=== PATIENT | female | born 2000 | race Caucasian/White ===

== ENCOUNTER 2021-09-11 09:36 | Emergency (ER) | payer OTHER, SELFPAY ==
[2021-09-11 09:39] VITALS: BP 121/81; PULSE 106; RESP 16; TEMP 36.3; O2SAT 98; BMI 23.8
--- NOTE | 2021-09-11 10:25 | EX.ED.DYSGE1 ---
HPI History of Present Illness Chief Complaint: Rash Informant: patient Onset/Context/Timing Onset: Days (4-5) Context: Gradual Onset Timing: Continuous Quality: Red and itchy although not itchy now Location: all over mostly on extremities Current Severity: Moderate Maximum Severity: Moderate Worsened by: Nothing in particular Relieved by: Was helped by Benadryl and Zyrtec but not now Associated Symptoms Associated Symptoms: None except a little shaky in her hands Narrative Narrative: Patient has had hives for no apparent reason. She takes Prozac but no other medications and has had no other prescriptions or [id number] medications before this rash started. No exposures that she can think of except for some old close from the attic of her grandfathers that she had tried on, but she is not continuing to wear those. She is not . She saw urgent care, they put her on prednisone and she has had it for 2 or 3 days now and has noticed a minor difference but for the most part the rash is still there. It is not as itchy as it was, and now Benadryl is not helping at all with regards to the rash. [facility] Medical History (Updated 09/11/21 @ 10:[address] Michael Zelaya MD) Depression Medical History no medical history Allergy/AdvReac Type Severity Reaction Status Date / Time No Known Allergies Allergy Verified 09/11/21 09:38 Surgical History no surgical history no surgical history Social History Smoking Status: Unknown if ever smoked [facility] ED Constitutional Constitutional ED: Denies chills or fever(s) Eyes Eyes: Denies change in vision or diplopia ENT ENT ED: Denies rhinorrhea or sore throat Cardiovascular Cardiovascular: Denies chest pain or palpitations Respiratory/Chest Respiratory/Chest: Denies cough or dyspnea Gastrointestinal Gastrointestinal: Denies abdominal pain, diarrhea, nausea or vomiting Genitourinary Genitourinary ED: Denies dysuria or hematuria Musculoskeletal Musculoskeletal: Denies back pain or neck pain Integumentary Reports as per HPI and rash; Denies abscess Neurologic Neurologic: Denies headache(s), paresthesias or weakness Psychiatric Psychiatric: Denies anxiety or suicidal thoughts EXAM Physical Exam Const Vital Signs: 09/11/21 09:39 Temperature 97.4 F L Temperature Source Oral Pulse Rate 106 H Respiratory Rate 16 Blood Pressure 121/81 H Blood Pressure Mean 94 Pulse Ox 98 Oxygen Delivery Method Room Air Positive well nourished and well developed General Appearance ED: well developed and NAD HEENT Reports moist mucous membranes normocephalic and atraumatic Eyes PERRL and EOMs intact bilaterally Neck full ROM and supple Resp normal respiratory effort and clear to auscultation bilaterally Cardio regular rate, regular rhythm and no murmurs GI non-tender and non-distended Auscultation: normoactive bowel sounds Palpation: soft Back/Spine no CVA tenderness General Back: other FROM Extremity normal to inspection General Extremety ED: Negative for edema, pulses abnormal or tenderness General Extremity: Negative for edema or pulses abnormal Neuro oriented x3, CN's II-XII intact bilaterally and no sensory deficits noted Sensorium / Orientation: awake and alert Motor Exam: strength 5/5 throughout Skin no wounds Skin Narrative: Rash mostly on extremities, consistent with urticaria, blanching erythema, some are raised, some are coalescing especially on hands and forearms. No tenderness. No bullae. No purpura. No mucosal lesions. No edema. No stridor. Negative Nikolsky. MDM MDM MDM Narrative Medical decision making narrative: Rash appears consistent with urticaria and the initial history is also consistent, but now I am wondering if it is erythema multiforme minor, however there are no target lesions at all. She was not bit by a tick either. She is not in any danger right now, there are no anaphylactoid symptoms, I am going to give her her dose of prednisone for today and make it 60 mg instead of 40, she has 1 day of 40 mg left which will be tomorrow, then she will start to taper, and if it does not improve she should see dermatology and she was given that information we discussed anaphylactic reaction and reasons to return. The trembling is probably related to the prednisone. Discharge Plan Triage Chief Complaint: Rash ED Provider: Michael Zelaya Dx/Rx/DC Orders Clinical Impression: Urticaria Instructions: ED Hives (Adult) Primary Care Provider: NOT,DEFINED Referrals: Jasper Obrien MD [STAFF PHYSICIAN] - 3-5 Days if not improving NOT,DEFINED [Primary Care Provider] - Disposition Disposition: Home, Self Care
[2021-09-11] MEDS: predniSONE 20 MG Tablet 60 MG PO (10:49)
== END 2021-09-11 10:57 | disposition home or self-care (01) ==
PROVIDERS: Emergency Provider Emergency Medicine; Visit Provider Emergency Medicine
DX: L50.9 Urticaria, unspecified (principal)
CPT/HCPCS: 99283